=== PATIENT | female | born 1995 | race Caucasian/White ===

== ENCOUNTER 2021-03-14 11:12 | Outpatient (REF) | payer OTHER, SELFPAY ==
--- NOTE | ~2021-03-14 | XR_ITS ---
EXAMINATION: XR CHEST CLINICAL INFORMATION: Covid infection COMPARISON: None TECHNIQUE: 2 views of the chest were obtained. FINDINGS: The cardiac and mediastinal contours are normal. The lungs are clear. There is no pleural effusion or pneumothorax. There are mild degenerative changes of the thoracic spine. XR/XR chest 2V IMPRESSION: No evidence for acute disease in the chest.
[2021-03-14 13:55] LABS: MANUAL DIFF FLAG NO
[2021-03-14 14:15] LABS: Appearance Urine HAZY; Color Urine YELLOW; Glucose Urine UA NEG (NEG); Leukocyte Esterase Urine NEG (NEG); Nitrite Urine NEG (NEG); Specific Gravity - Urine 1.025 (1.005-1.025); Urine Blood NEG (NEG); Urine Ketones NEG (NEG); Urine Protein NEG (NEG-TRACE)
[2021-03-14 14:18] LABS: Basophils Absolute Auto 0.1 X10*3/uL (0.0-0.2); Basophils Percent Auto 0.8 % (0-2); Eosinophils Absolute Auto 0.2 X10*3/uL (0.0-0.4); Eosinophils Percent Auto 1.8 % (0-4); Hematocrit 43.3 % (37-47); Hemoglobin 14.8 g/dl (12.0-16.0); Imm Gran Abs Auto 0.05 X10*3/uL (0.00-0.03); Imm Gran Pct Auto 0.4 % (0.0-0.4); Lymphocytes Absolute Auto 2.7 X10*3/uL (1.2-4.9); Lymphocytes Percent Auto 24.1 % (20-40); Mean Corpuscular HGB Conc 34.2 g/dl (31.0-35.0); Mean Corpuscular Volume 99.5 fL (80-98); Mean Platelet Volume 11.6 fL (9.4-12.3); Monocytes Absolute Auto 0.6 X10*3/uL (0.1-1.2); Monocytes Percent Auto 5.3 % (2-11); Neutrophils Absolute Auto 7.5 X10*3/uL (2.0-8.3); Neutrophils Percent Auto 67.6 % (45-73); Platelet Count 402 X10*3/uL (160-400); Red Blood Count 4.35 X10*6/uL (4.20-5.50); Red Cell Distribution Width 13.2 % (11.0-16.0); White Blood Count 11.1 X10*3/uL (4.8-10.8)
[2021-03-14 14:51] LABS: Alanine Aminotransferase 87 U/L (0-31); Albumin Level 4.3 g/dL (3.5-5.0); Alkaline Phosphatase 97 U/L (39-117); Anion Gap 16 (12-20); Aspartate Amino Transferase 50 U/L (5-31); Bilirubin Total 0.7 mg/dL (0.0-1.0); Blood Urea Nitrogen 6 mg/dL (9-16); Calcium 9.3 mg/dL (8.4-10.2); Carbon Dioxide 21 mmol/L (22-29); Chloride 104 mmol/L (96-108); Cholesterol 182 mg/dL; Estimated Glomerular Filt Rate > 60; Glucose Fasting 98 mg/dL (60-99); HDL Cholesterol 55 mg/dL; LDL Cholesterol Calculated 92 mg/dl; Potassium 4.2 mmol/L (3.3-5.1); Sodium 137 mmol/L (135-145); Total Protein 7.3 g/dL (6.5-8.0); Triglycerides 178 mg/dL
[2021-03-14 15:12] LABS: Thyroid Stimulating Hormone 2.79 uIU/mL (0.32-4.0); Vitamin D 25-OH Total 19.2 ng/mL (>30)
[2021-03-14 15:17] LABS: Bacteria Urine TRACE /LPF; Mucus Urine 1+ /LPF; RBC Urine 0-2 /HPF (0); Squamous Epithelial Cell Urine 2+ /LPF; WBC Urine 0-2 /HPF (0-4)
== END 2021-03-14 11:13 | disposition home or self-care (01) ==
LOC: HO.HMGCLDS 11:12
PROVIDERS: PCP Internal Medicine; Visit Provider Internal Medicine
DX: L70.9 Acne, unspecified (principal); M08.00 Unspecified juvenile rheumatoid arthritis of unspecified site; K21.9 Gastro-esophageal reflux disease without esophagitis; U07.1 COVID-19; Z91.09 Other allergy status, other than to drugs and biological substances
CPT/HCPCS: 36415; 71046; 80053; 80061; 81001; 82306; 84443; 85025; 87086

== ENCOUNTER 2021-08-03 10:21 | Emergency (ER) | payer OTHER, SELFPAY ==
[2021-08-03 10:27] VITALS: BP 143/83; PULSE 82; RESP 18; TEMP 36.7; O2SAT 100; BMI 41.0
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
== END 2021-08-03 13:08 | disposition home or self-care (01) ==
LOC: HO.ED 12:23
PROVIDERS: Emergency Provider Emergency Medicine; PCP Internal Medicine
DX: G44.329 Chronic post-traumatic headache, not intractable (principal); F07.81 Postconcussional syndrome; Z87.820 Personal history of traumatic brain injury
CPT/HCPCS: 99283

== ENCOUNTER 2024-03-27 12:48 | Outpatient (AMB) | payer OTHER, SELFPAY ==
[2024-03-27 13:15] VITALS: BP 100/70; PULSE 71; TEMP 36.6; O2SAT 99; BMI 39.2
--- NOTE | 2024-03-27 13:15 | MHC.OFFWIV ---
Intake Vital Signs 03/27/24 13:15 Height 4 ft 11 in Weight 194 lb BMI 39.2 BP 100/70 Blood Pressure Location Lt brachial Position Sitting Pulse 71 Pulse Source Pulse Oximeter Temp 97.9 F Temp Source Oral Pulse Oximetry (%) 99 Oxygen Delivery Method Room Air Intake Visit Reasons: EP- Rt hip pain Intake Note: Pt is here today c/o Rt hip pain due to her dog running over her Allergies Penicillins Allergy (Mild, Verified 03/27/24 14:08) unsure SEASONAL ALLERGIES Allergy (Mild, Uncoded 03/27/24 13:57) RUNNY NOSE, SNEEZING,ITCHY EYES Medication List - Last Reconciled 03/27/24 by Lisette Skelton, ENROLLMENT ELIGIBILITY REPRESENTATIVE- albuterol sulfate 90 mcg/actuation inhalation cetirizine 10 mg PO DAILY PRN diclofenac sodium 75 mg PO DAILY montelukast 10 mg PO DAILY omeprazole magnesium (Prilosec OTC) 20 mg PO DAILY spironolactone 25 mg PO DAILY HPI HPI Comments History of Present Illness Details Here today with complaints of right hip and groin pain that started 2 weeks ago. Reports that she was standing with her right leg out turned and a people ran in to the medial aspect of her knee causing her hip to abduct. She did not fall. She has had pain in the groin area since then. The pain can radiate to the lateral aspect of her hip. It hurts to walk and bear weight. Has been doing ice, heat, NSAIDs and Tylenol with very minimal relief. Exam Awake alert oriented, no acute distress, accompanied by mom Right lower extremity neurovascularly intact, antalgic gait favoring the right side, pain with palpation over right groin, lateral right hip, painful range of motion in all directions active and passive Plan Advised to use crutches to help her ambulate. I do not want her to be nonweightbearing. Rather I want her to use the crutches to help support her gait. She reports that she has crutches at home and we will begin to use. Okay to continue diclofenac which she has a home. Use Tylenol as needed for breakthrough pain along with heat, ice. X-ray of the right hip and pelvis today, review by myself negative for acute findings. Final read pending. Referral placed to orthopedics for further evaluation treatment and management This note is constructed using voice recognition software. While every effort has been made to ensure accuracy in facility maintenance manager, still errors may have been included Sometimes, these errors may affect the content or meaning of the given sentence . Total time spent caring for the patient today was 30 minutes. This includes time spent before the visit reviewing the chart, time spent during the visit, and time spent after the visit on documentation [facility] Medical History Acne Arthritic gait Asthma Seasonal allergies TBI (traumatic brain injury) Physical Exam Vital Signs: Last Vital Signs Temp 97.9 F 03/27/24 13:15 Pulse 71 03/27/24 13:15 BP 100/70 03/27/24 13:15 Pulse Ox 99 03/27/24 13:15 Oxygen Delivery Method Room Air 03/27/24 13:15 BMI result Body Mass Index 39.2 Assessment & Plan Assessment & Plan (1) Right groin pain: Code(s): R10.31 - Right lower quadrant pain Plan: . (2) Injury of right hip: Code(s): S79.911A - Unspecified injury of right hip, initial encounter Qualifiers: Encounter type: initial encounter Qualified Code(s): S79.911A - Unspecified injury of right hip, initial encounter Plan: . Plan . Orders: Orders XR hip RT w PEL1V Today R10.31 - Right lower quadrant pain, S79.911A - Unspecified injury of right hip, initial encounter Referrals Orthopedics Referral R10.31 - Right lower quadrant pain, S79.911A - Unspecified injury of right hip, initial encounter Coding Level of Care Code Est Pt Level 4 (82878) Diagnoses Right groin pain R10.31 Injury of right hip, initial encounter S79.911A Encounter type: initial encounter
== END 2024-03-27 14:09 | disposition home or self-care (01) ==
PROVIDERS: PCP Internal Medicine; Visit Provider Nurse Practitioner Family
DX: R10.31 Right lower quadrant pain (principal); S79.911A Unspecified injury of right hip, initial encounter

== ENCOUNTER 2024-03-27 12:48 | Outpatient (REF) | payer OTHER, SELFPAY | END 2024-03-27 12:49 | disposition home or self-care (01) | LOC: HO.HMGCX 12:48 | PROVIDERS: PCP Internal Medicine; Visit Provider Nurse Practitioner Family | DX: S79.911A Unspecified injury of right hip, initial encounter (principal); W50.0XXA Accidental hit or strike by another person, initial encounter; R10.31 Right lower quadrant pain | CPT/HCPCS: 73502 ==

== ENCOUNTER 2024-04-19 10:00 | Outpatient (AMB) | payer OTHER, SELFPAY ==
[2024-04-19 10:01] VITALS: BMI 39.2
--- NOTE | 2024-04-19 10:01 | MHC.OFFVIS ---
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 Mar 09 she was standing with her leg out when a dog ran into the medial aspect of her leg causing her leg to rotate laterally. Patient reports that she though that her symptoms would resolve on their own, she was taking Tylenol and Ibuprofen as well as rest and ice. Currently she feels pain all the time, worse with walking and working. Denies numbness and tingling She is currently at work. 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 She was at work on Mar 09 and was standing with her leg out when a dog ran into the medial aspect of her leg causing her leg to rotate laterally. Patient reports that she though that her symptoms would resolve on their own, she was taking Tylenol and Ibuprofen as well as rest and ice. Currently she feels pain all the time, worse with walking and working. Denies numbness and tingling. She is currently working but with pain. She can not walk normally. She has to use crutches and feels frustrated that she is so disabled. [facility] Medical History Acne Arthritic gait Asthma Seasonal allergies TBI (traumatic brain injury) Social History (Updated 04/19/24 @ 10:09 by Qian Hoover CMA) Current occupational status: employed Current occupation: [employer] Physical Exam Vital Signs: BMI result Body Mass Index 39.2 Extrem Other: Antalgic gait Passive internal rotation is extremely painful with a positive impingement test. Negative straight leg raise. Positive Stinchfield. Results Reviewed Results Reviewed: I personally reviewed relevant radiographs. AP pelvis radiographs are unremarkable Assessment & Plan Assessment & Plan (1) Labral tear of right hip joint: Code(s): S73.191A - Other sprain of right hip, initial encounter Category: Medical Plan: This is a 28-year-old previously healthy young woman with internal derangement of the right hip possible labral pathology who was involved in a workplace injury and can not walk without pain. I recommend physical therapy and that she do not work. A note was written written for her to remain out of work until her next follow up with me in approximately 6 weeks. She is taking diclofenac 75 mg daily and has been for many years because of a history of rheumatoid arthritis. I recommend that she double that dose. I warned her of the caustic effects on her stomach and that if this irritates her stomach she should reduce her use. Orders: Orders PT Evaluation and Treatment Today S73.191A - Other sprain of right hip, initial encounter Medications: Changed From diclofenac sodium 75 mg PO DAILY To diclofenac sodium 75 mg PO BID 60 tabs 1RF Coding Level of Care Code New Pt Level 4 (87191) Diagnoses Labral tear of right hip joint S73.191A
== END 2024-04-19 10:26 | disposition home or self-care (01) ==
PROVIDERS: PCP Internal Medicine; Visit Provider Orthopaedic Surgery
DX: S73.191A Other sprain of right hip, initial encounter (principal)
CPT/HCPCS: 99204

== ENCOUNTER 2024-05-28 07:00 | Outpatient (RCR) | payer OTHER, SELFPAY ==
--- NOTE | 2024-05-07 07:00 | MHC.PT.EP ---
[facility] [place] [facility] [place] [facility] [place] [facility] [address] Rosendo Summers [address] [phone] F: [phone] F: [phone] F: [phone] F: [phone] Physical Therapy Plan of Care Date of Evaluation: 05/07/24 Date of Surgery: Diagnosis: This is a 28 yo female presenting to skilled PT with a script for labral tear of R hip joint. Assessment: This is a 28 yo female presenting to skilled PT with a script for labral tear of R hip joint. On 03/09/24 this patient was standing at work when a dog ran into the medial aspect of her leg causing increased pain right way (her leg abducted and ER, she fell into the fence). Patient is being followed by [facility] ortho and returns to them on 05/31/24. The last note from them states possible labral pathology: I recommend physical therapy and that she do not work. A note was written written for her to remain out of work until her next follow up with me in approximately 6 weeks. She is taking diclofenac 75 mg daily and has been for many years because of a history of rheumatoid arthritis. Pain is located at the R groin, lateral hip. Pain is constant but can be sharp at times. Denies numbness or tingling. Assessment reveals pain that ranges from up to a 8/10 at the worst. Patient demos decreased hip ROM, strength of B hips, TTP at QL, piriformis, ITB, lateral hip, SIJ, decreased gait pattern and associated balance, + SIJ test involvements and impaired posture with forward head and rounded shoulders. Based on functional limitations, impaired QOL and pain tolerance patient is a good candidate for skilled PT 2x/wk for 4wks. Frequency and Duration: The patient will be seen 2x/wk for 4wks Short Term Goals: (in 2 weeks) Patient will improve hip AROM by at least 10 degs without assist or pain Patient will demo good understanding and performance of quad set, glut set in multiple different planes without cues from PT Patient will be I in HEP Fdc Goals: (in 4 weeks) Patient will demo improved gait pattern with heel strike vs toe first without cues from PT Patient will improve LEFs by 10 points Patient will demo WFL AROM of hip, knee and ankle Patient will demo proper squat and lift techniques without increase in pain Patient will demo 5/5 glut and hip strength Treatment Plan: Modalities to reduce pain, spasms and effusion. Manual therapy to restore motion and function. Therapeutic exercise to improve strength and flexibility. Neuromuscular re-education for posture and balance. Therapeutic activities to return to functional activities of daily living. Electronically signed by: Beverly Hernandez PT Please sign and return to therapist. Thank you for your referral.
--- NOTE | 2024-05-28 08:01 | MHC.PT.PR ---
[facility] [place] [facility] [place] [facility] [place] Office [address] Rosendo Summers [address] [phone] F: [phone] F: [phone] F: [phone] F: [phone] Physical Therapy Progress Note Diagnosis: This is a 28 yo female presenting to skilled PT with a script for labral tear of R hip joint. Date of Surgery: Date of Evaluation: 05/07/24 Treatments to Date: 7 Cancellations to Date: 0 No Shows to Date: 0 Subjective: I have a little less pain today Pain Score and Location: 6 R hip Objective Measures: knee AROM: 0-121 knee MMT: flexion 5 and extension 5 hip AROM: hamstring to 65, 27 abduction, 10 add, 90 degs flexion, 15 ext, 25 IR and 35 ER hip MMT: flexion 4, abduction 4, ext 3, IR 3, ER 4- functional movements: SLS for 23 sec, squats onto toes and uses table to shift away from the hip, step to on the stairs and offweights through UE's using rails pain at the worst lately: 01/26, located at the groin, painful clicking and sharp pains LEFs: Assessment: 05/28: Today I performed a re-evaluation as noted above in the objective measurements. Overall, she has made little progress with improvements in pain/symptoms and at times she has more pain. She demos little improvement in objective measurements as well. She sees ortho on Friday, PT recommending patient to follow up with them for ? further testing. Patient has 1 more scheduled appointment, if ortho wants her to continue we will do so for 2x/wk for 4 wks if approved. PT Plan: Frequency and Duration: The patient will be seen 2x/wk for 4wks Treatment Plan: Therapeutic Exercise Dynamic Therapeutic Activities Neuromuscular Re-ed Manual Therapies Joint Mobilization Taping Gait Home Exercise Program Patient Education Hot or Cold Pack Reviewed/ Agreed with Student Documentation: Therapist: Thank you once again for your referral.
--- NOTE | 2024-06-25 10:27 | MHC.PT.DC ---
[facility] [place] Office [place] Office [place] Office [address] Rosendo Summers [address] [phone] F: [phone] F: [phone] F: [phone] F: [phone] Physical Therapy Discharge Report Diagnosis: This is a 28 yo female presenting to skilled PT with a script for labral tear of R hip joint. Date of Surgery: Date of Evaluation: 05/07/24 Date of Discharge: 06/25/24 Treatments to Date: 7 Cancellations to Date: 0 No Shows to Date: 0 Discharge Status: Recommend MD Follow-up Discharge Summary: 05/28: Today I performed a re-evaluation as noted above in the objective measurements of last progress note. Overall, she has made little progress with improvements in pain/symptoms and at times she has more pain. She demos little improvement in objective measurements as well. She sees ortho on Friday, PT recommending patient to follow up with them for ? further testing. Chart was closed after 30 days. Electronically signed by: Beverly Hernandez PT Please sign and return to therapist. Thank you for your referral.
== END 2024-06-25 10:28 | disposition home or self-care (01) ==
LOC: HO.PTCHIC 07:00
PROVIDERS: PCP Internal Medicine; Visit Provider Orthopaedic Surgery
DX: S73.191D Other sprain of right hip, subsequent encounter (principal)
CPT/HCPCS: 97110; 97140; 97161; 97162; 97164

== ENCOUNTER 2024-05-31 10:05 | Outpatient (AMB) | payer OTHER, SELFPAY ==
[2024-05-31 10:08] VITALS: BMI 39.2
--- NOTE | 2024-05-31 10:08 | MHC.OFFVIS ---
Vital Signs 05/31/24 10:08 Height 4 ft 11 in Weight 194 lb BMI 39.2 Intake Visit Reasons: OV - Right Labral Tear - 03/09/24 Intake Note: Jemma is a 28 year old female who presents today for a follow up of her Right Hip/Labral Tear. This was a work related injury from 03/09/2024 she was standing with her leg out when a dog ran into the medial aspect of her leg causing her leg to rotate laterally. A physical therapy order was placed & she was instructed to double her dose of Diclofenac that she was previously prescribed for RA. She remains out of work at this time. Patient reports that she continues to have pain, she feels that her symtpoms have remained unchanged. Allergies Penicillins Allergy (Mild, Verified 05/31/24 10:08) unsure bee venom protein (honey bee) Allergy (Verified 05/31/24 10:08) Anaphylaxis SEASONAL ALLERGIES Allergy (Mild, Uncoded 05/31/24 10:08) RUNNY NOSE, SNEEZING,ITCHY EYES HPI HPI OV - Right Labral Tear - 03/09/24: Details: Justina was injured while at work less than 3 months ago. She is still unable to ambulate. She feels slightly better after increasing her anti-inflammatory and engaging in physical therapy but still has groin pain that prevents her from walking without a limp and severe discomfort. [facility] Medical History Acne Arthritic gait Asthma Seasonal allergies TBI (traumatic brain injury) Social History Current occupational status: employed Current occupation: [employer] Physical Exam Vital Signs: BMI result Body Mass Index 39.2 Extrem Other: Antalgic gait Passive internal rotation is positive impingement test that is less painful than prior. Negative straight leg raise. Positive Stinchfield. Assessment & Plan Assessment & Plan (1) Labral tear of right hip joint: Code(s): S73.191A - Other sprain of right hip, initial encounter Category: Medical Plan: Work-related injury of her right hip. PT and NSAIDs have not sufficiently alleviated her discomfort and I recommend an MR arthrogram. Continue home exercise program continue some out of work. Follow up when MRI is complete. Orders: Orders MR hip RT w con Today S73.191A - Other sprain of right hip, initial encounter [place] arthrogram hip RT Today S73.191A - Other sprain of right hip, initial encounter Coding Level of Care Code Est Pt Level 3 (76824) Diagnoses Labral tear of right hip joint S73.191A
== END 2024-05-31 10:29 | disposition home or self-care (01) ==
PROVIDERS: PCP Internal Medicine; Visit Provider Orthopaedic Surgery
DX: S73.191A Other sprain of right hip, initial encounter (principal)
CPT/HCPCS: 99213

== ENCOUNTER → 2024-05-31 10:05 | Outpatient (BNVA) | payer OTHER, SELFPAY | PROVIDERS: PCP Internal Medicine; Visit Provider Orthopaedic Surgery | DX: S73.191D Other sprain of right hip, subsequent encounter (principal) | CPT/HCPCS: 99212 ==

== ENCOUNTER 2024-06-21 12:52 | Outpatient (REF) | payer OTHER, SELFPAY ==
--- NOTE | ~2024-06-21 | MR_ITS ---
CLINICAL HISTORY: S73.191A - Other sprain of right hip, initial encounter MR right hip with gadolinium Comparison: None Findings: Normal alignment without acute fracture. Unremarkable soft tissues. Right: Suggestion of anterior superior labral tear from 1 to 2 o'clock positions especially on the sagittal view. Unremarkable ligamentum teres. No significant cartilage thinning/loss. IMPRESSION: Right: Suggestion of anterior superior labral tear from 1 to 2 o'clock positions especially on the sagittal view. This document has been electronically signed by: Kenia Mckinney MD on 06/23/2024 12:08:41
--- NOTE | ~2024-06-21 | FL_ITS ---
FLUOROSCOPIC RIGHT HIP ARTHROGRAM INDICATIONS: Right hip pain. Intra-articular gadolinium injection is needed prior to MRI. PROCEDURE: Risks and benefits and possible complications were discussed with the patient and the consent form was signed. The patient was placed hip on the fluoroscopy table. The right hip was prepped and draped in normal sterile fashion. 1% buffered lidocaine was used for anesthesia. A 22-gauge spinal needle was used to access the hip joint. Intra-articular position of the needle within the hip joint was verified using 3 cc of Omnipaque 300. A total of 10 mL of gadolinium/saline (1:200) contrast mixture was then injected into the hip joint. The needle was then removed and a Band-Aid was applied to the injection site. The patient tolerated the procedure well and was sent for to MRI. There were no immediate complications. FL/FL arthrogram hip RT IMPRESSION: Successful fluoroscopic guided right hip intra-articular instillation of dilute contrast. Patient will undergo subsequent MRI. The procedure was performed by Srinath Myers PA-C, and directly supervised by Dr. Knight. Electronically signed by: Henri Knight MD 06/22/2024 12:56 PM [facility]
[2024-06-21] MEDS: Lidocaine HCl 1 % 20 ML VIAL 5 ML INFILTRATI (13:41)
[2024-06-21] MEDS: iohexoL 300 MG/ML 50 ML INFUS..BTL INTRAARTIC (13:42)
--- OUTSIDE RECORDS SUMMARY | 2024-06-21 14:12 | XMS_ITS | Encounter Summary ---
Author Organization [facility] Address [address] [place] [address] Phone Care Team Providers Care Seismic Interpreter Name Role Phone Lori Meneses NP Primary Care Provider [phone] Encounter Details Date Type Department Care Team (Late st Contact Info) Description 02/04/2013 Conversion Encounter [facility] [address] [place] [address] [place] [id number] Social History Tobacco Use Types Packs/Day Years Used Date Smoking Tobacco: Never Assessed Comments Unknown Sex and Gender Information Value Date Recorded Sex Assigned at Not on file Legal Sex Female 6:24 PM EDT Gender Identity Not on file Sexual Orientation Straight 08/07/2020 6: 24 PM EDT documented as of this encounter Plan of Treatment Not on file documented as of this encounter Visit Diagnoses Not on filedocumented in this encounter Care Teams Seismic Interpreter Relationship Specialty Start Date End Date Lori Meneses NP [address] [place] [address] [place] [id number] PCP - General Pediatrics 09/04/20 documented as of this encounter
--- OUTSIDE RECORDS SUMMARY | 2024-06-21 14:12 | XMS_ITS | Encounter Summary ---
Author Organization [facility] Address [address] [place] [address] Phone Care Team Providers Care Entry Rep Name Role Phone Lori Meneses NP Primary Care Provider [phone] Reason for Visit * Reason Comments Med Refill Encounter Details Date Type Department Care Team (Late st Contact Info) Description 11/07/2017 Refill [facility] [address] [place] [address] [place] [id number] Tiffanie Cote DO PCOS (polycystic ovarian syndrome) (Primary Dx) Social History Tobacco Use Types Packs/Day Years Used Date Smoking Tobacco: Never Smokeless Tobacco: Never Comments:Never Smoker Comments Unknown Sex and Gender Information Value Date Recorded Sex Assigned at Not on file Legal Sex Female 6:24 PM EDT Gender Identity Not on file Sexual Orientation Straight 08/07/2020 6: 24 PM EDT documented as of this encounter Miscellaneous Notes * Telephone Encounter - Miranda Nicole MA - 11/10/2017 7:48 AM EDT Last pe with ALP on 12/09/16 documented in this encounter Plan of Treatment Not on file documented as of this encounter Visit Diagnoses Diagnosis PCOS (polycystic ovarian syndrome)- Primary Polycystic ovaries documented in this encounter Care Teams Entry Rep Relationship Specialty Start Date End Date Lori Meneses NP [address] [place] [address] [place] [address] PCP - General Pediatrics 09/04/20 documented as of this encounter
--- OUTSIDE RECORDS SUMMARY | 2024-06-21 14:12 | XMS_ITS | Clinical Summary ---
Author Organization [facility] Address [address] [place] [address] Phone Care Team Providers Care Business Management Specialist Name Role Phone Lori Meneses ASHLYN Primary Care Provider [phone] Allergies Active Allergy Reactions Criticality Noted Date Comments Amoxicillin Bee Venom 09/18/2020 Environmental Penicillins 11/26/2017 Medications diclofenac 75 MG EC tablet 8 Active Omeprazole Magnesium (PRILOSEC OTC PO) Take by mouth. Active albuterol HFA 108 (90 Base) MCG/ACT inhalerIndication s:Cough Inhale 2 puffs every 4 (four) hours as needed for wheezing or shortness of breath. 1 Units 1 Active EPINEPHrine (EpiPen 2-Santana) 0.3 MG/0.3ML injection syringeIndication s:Allergic reaction, subsequent encounter Inject into muscle immediately for signs of anaphylaxis AND call 911. Repeat if symptoms worsen/recur or if uncertain medicine was given 4 Syringe 1 1 Active cetirizine 10 MG tabletIndications :Seasonal allergic rhinitis due to other allergic trigger Take 1 tablet (10 mg total) by mouth nightly. 30 tablet 3 1 Active spironolactone 25 MG tabletIndications :PCOS (polycystic ovarian syndrome) Take 2 tablets po daily 60 tablet 3 1 Active montelukast 10 MG tabletIndications :Non-seasonal allergic rhinitis due to other allergic trigger Take 1 tablet (10 mg total) by mouth every evening. 30 tablet 3 1 Active medroxyPROGESTERo ne 150 MG/ML injectionIndicati ons:Encounter for surveillance of injectable contraceptive Inject 1 mL (150 mg total) into the muscle once for 1 dose. 1 mL 1 Active Active Problems Patient Care Coordination No te Formatting of this note migh t be different from the original. Tcm to book asthma recheck appt no answer vm left. 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 Overview (11/26/2017): Juvenile rheumatoid arthritis (JRA) (714.30) Onset: 12/10/2016 Added by: Tiffanie Cote Extrinsic asthma 03/25/2014 Overview (11/26/2017): Asthma (493.00) Onset: 03/25/2014 Added by: Adrian Hidalgo Resolved Problems Problem Noted Date Diagnosed Date Resolved Date Refused influenza vaccine 08/07/2020 Dizziness and giddiness 09/25/2017 06/0 07/2018 Overview (11/26/2017): Dizziness (780.4) Onset: 09/25/2017 Added by: Ying Zambrano Postconcussion syndrome 08/17/2017 03/2 12/2020 Overview (11/26/2017): Post concussion syndrome (310.2) Onset: 08/17/2017 Added by: Tiffanie Cote Intestinal infections due to other organisms 7 10/19/2018 Overview (11/26/2017): Viral gastroenteritis (008.8) Onset: 12/02/2016 Added by: Bazukina, Miranda Contraceptive surveillance 05/31/2016 0 11/27/2018 Overview (11/26/2017): Follow-up visit for Depo Provera injection (V25.49) Onset: 05/31/2016 Added by: Freda Martinez Pain in soft tissues of limb 05/09/2015 10/19/2018 Overview (11/26/2017): Leg pain (729.5) Onset: 05/09/2015 Added by: Montse Alejandre Other atopic dermatitis and related conditions 04/10/2015 09/18/2020 Overview (11/26/2017): Atopic eczema (691.8) Onset: 04/10/2015 Added by: Tiffanie Cote Other malaise and fatigue 08/04/2014 Overview (11/26/2017): Fatigue (780.79) Onset: 08/04/2014 Added by: Ying Zambrano Slow transit constipation 06/08/2014 Overview (11/26/2017): Constipation (564.01) Onset: 06/08/2014 Added by: Tiffanie Cote Immunizations Name Administration Dates Next Due DTP 06/22/1998 DTaP 01/29/2002, 9,05/19/1997,03/19,01/17/1997 DTaP 5 01/29/2002, 9,05/19/1997,03/19,01/17/1997 HPV, Quadrivalent 05/14/2013,12/09/2012,10/08/19 13 Hep A, Adult 10/14/2018 Hep B, ped/adol 03/14/1998, 8,08/17/1997,12/17 Hib (HbOC) 02/16/1998, 8,03/19/1997,01/17 Hib (PRP-T) 03/14/1998, 8,05/19/1997,03/19,01/17/1997 IPV 01/29/2002, 9,03/19/1997,01/17 Influenza, injectable, quadr ivalent, preservative free 04/09/2014,04/16/2013 Influenza, injectable, trivalent 03/26/2012,02/17 MMR 01/29/2001,03/14/1998,02/16/1998 Meningococcal Conj (Menactra) MCV4P 11/24/2013,0 01/31/2009 OPV 06/22/1998 Tdap 11/26/2018,01/31/2009 Typhoid, ViCPs 10/14/2018 Varicella 11/17/2007,12/14/1997,11/16/1997 Yellow Fever (YF-VAX) 10/14/2018 Family History Medical History Relation Name Comments Hemochromatosis Father Keven Asthma Mother Angela Diabetes Paternal Grandfather Relation Name Status Comments Brother Keven Alive Father Keven Alive Mother Angela Alive Paternal Grandfather Sister Celestina Alive Social History Tobacco Use Types Packs/Day Years Used Date Smoking Tobacco: Never Smokeless Tobacco: Never Comments:Never Smoker Alcohol Use Standard Drinks/Week Comments Yes 0 (1 standard drink = 0.6 oz pur e alcohol) social Hunger/Food Answer Date Recorded In the last 12 months, did y ou or your family ever eat less than you felt you should because there wasn't enough money for food? No 08/07/2020 Stable Housing Answer Date Recorded Are you worried that in the next 2 months you may not have stable housing? No 08/07/2020 Transportation Concerns Answer Date Rec orded In the last 12 months, have you or your family ever had to go without healthcare because you didn't have a way to get there? No 08/07/2020 Hazards in Home Answer Date Recorded Think about the place you li ve. Do you have problems with any of the following? Pests (mice or roaches), mold, no/not working smoke detectors, water leaks, no window guards. No 2020 Financing Utilities Answer Date Recorde d In the last 12 months, has t he electric, gas, oil, or water company threatened to shut off your services in your home? No 08/07/2020 Safety at Home Answer Date Recorded Are you or your family worried about feeling saf e in your home? No 08/07/2020 Outside Support Answer Date Recorded Do you feel that you need mo re support from other people or programs to help you care for yourself or your family? No 08/07/2020 Understanding Health Concerns Answer Da te Recorded Do you need help understandi ng your or your child's healthcare needs (diagnosis, medications, plan, etc.)? No 08/07/2020 Financing Health Concerns Answer Date R ecorded In the last 12 months, was t here a time when your child needed to see a doctor or get medications or supplies but could not because of cost? No 08/07/2020 Missing School or Work Answer Date Uri rded Did you or your child miss s chool or work because of a health problem that could have been avoided? No 08/07/2020 Comments No Sex and Gender Information Value Date Recorded Sex Assigned at Not on file Legal Sex Female 6:24 PM EDT Gender Identity Not on file Sexual Orientation Straight 08/07/2020 6: 24 PM EDT Last Filed Vital Signs Vital Sign Reading Time Taken Comments Blood Pressure 108/60 09/18/2020 2:28 PM EDT Pulse 117 09/18/2020 2:28 PM EDT Temperature 35.7 ??C (96.3 ??F) 11/07/2020 3:00 PM ED T Respiratory Rate - - Oxygen Saturation 99% 05/25/2020 2:10 PM EST Inhaled Oxygen Concentration - - Weight 94.3 kg (207 lb 12.8 oz) 09/18/2020 2:28 PM EDT Height 151 cm (4' 11.45 ) 09/18/2020 2:28 PM EDT Body Mass Index 41.34 09/18/2020 2:28 PM EDT Plan of Treatment Health Maintenance Due Date Last Done Comments Consider Men B Vaccine (1 of 2 - Bexsero 2-dose series) 2012 Influenza Vaccines (#1) 2023 04/09/20 14, 04/16/2013, 03/26/2012, Additional history exists COVID-19 Vaccine ( - season) 2024 DTaP,Tdap,and Td Vaccines (8 - Td or Tdap) 11/26/2028 11/26/2018, 01/31/2009, 01/29/2002, Additional history exists HIB Vaccines Completed 03/14/1998, 05/1997, 02/16/1998, Additional history exists Hepatitis B Vaccines Completed 03/14/1998, 02/16/1998, 08/17/1997, Additional history exists MMR Vaccines Completed 01/29/2001, 02/17, 02/16/1998 IPV Vaccines Completed 01/29/2002, 08/1998, 06/19/1998, Additional history exists Varicella Vaccines Completed 11/17/2007, 0 12/14/1997, 11/16/1997 HPV Vaccines Completed 05/14/2013, 11/17, 10/07/2012 Meningococcal Vaccine Completed 11/24/2013, 009 Hepatitis A Vaccines Aged Out 10/14/2018 No long er eligible based on patient's age to complete this topic Men B Vaccine Aged Out No longer elig ible based on patient's age to complete this topic Pneumococcal Vaccine Aged Out No long er eligible based on patient's age to complete this topic Procedures * Due to [place] [employer] law, this organization might not be sharing sensitive test results. Procedure Name Priority Date/Time Associated Diagnosis Comments CHLAMYDIA GC AMP PROBE Routine 08/07/2020 6:11 PM EDT Well adult exam from Last 3 Months or Most Recently Relevant to Health Maintenance Results * Due to [place] [employer] law, this organization might not be sharing sensitive test results. * CHLAMYDIA GC AMP PROBE (08/07/2020 6:11 PM EDT) Chlamydia Trachomatis, Amplified NEGATIVE (NEG) [facility] Comment: No Chlamydia Trachomatis RNA detected in this patient's sample ? (REFERENCE RANGE/NORMAL VALUE: NOT DETECTED) ? Note: This test uses gate services supervisor- mediated amplification method to detect rRNA from C. Trachomatis N.GONORRHOEAE AMP PROBE NEGATIVE (NEG) [facility] Comment: No Neisseria Gonorrhoeae RNA detected in this patient's sample ? (REFERENCE RANGE/NORMAL VALUE: NOT DETECTED) ? NOTE: This test uses gate services supervisor-mediated amplification method to detect rRNA from N.Gonorrhoeae. A negative result does not preclude infection. In the case of a negative urine result, testing of an endocervical(female) or urethral (male) specimen is recommended if there is high clinical suspicion of infection. Due to very high sensitivity of Nucleic Acid Amplification Test, false positive results may occur. Therefore, specimen handling is extremely important. In patients in whom the disease is unlikely, additional sample for testing should be considered after an initial positive result. The performance characteristics of this test have not been evaluated in children. The Aptima Combo2 assay is not intended for the evaluation of suspected sexual abuse or for other medico-legal indications. The ordering provider should assess if the patient had consensual sex without risk of sexual abuse. Consult the [facility] if needed. Contact phone number . Therapeutic failure or success cannot be determined with the Aptima Combo2 assay since nucleic acid may persist following appropriate antimicrobial therapy. The Centers for Disease Control and Prevention (CDC) recommends confirmatory retesting using culture or a different nucleic acid amplification test when positive results occur, if indicated. CHLAM/GC AMP PROBE SPEC TYPE CERVIX [facility] Comment: Testing performed or reported by [facility], a Service of [facility], [facility] [place] [address] Pascual Allan MD, Research Pharmacist Swab (Cervix) 08/07/2020 6:1 1 PM EDT 08/08/2020 1:20 AM EDT Tiffanie Cote DO LAB MICROBIOLOGY - GENERAL ORDE JULIANNE Final Result [facility] from Last 3 Months or Most Recently Relevant to Health Maintenance Insurance [facility] Care Teams Business Management Specialist Relationship Specialty Start Date End Date Lori Meneses NP [address] [facility] [place] [address] PCP - General Pediatrics 09/04/20
--- OUTSIDE RECORDS SUMMARY | 2024-06-21 14:12 | XMS_ITS | Encounter Summary ---
Author Organization [facility] Address [address] [place] [address] Phone Care Team Providers Care Buggy Ladle Tender Name Role Phone Lori Meneses ASHLYN Primary Care Provider [phone] Reason for Visit * Reason Comments Med Refill Encounter Details Date Type Department Care Team (Late st Contact Info) Description 01/12/2020 Refill [facility] [address] [facility] [place] [address] Tiffanie Cote DO PCOS (polycystic ovarian syndrome) Social History Tobacco Use Types Packs/Day Years Used Date Smoking Tobacco: Never Smokeless Tobacco: Never Comments:Never Smoker Alcohol Use Standard Drinks/Week Comments Yes 0 (1 standard drink = 0.6 oz pur e alcohol) social Comments No Sex and Gender Information Value Date Recorded Sex Assigned at Not on file Legal Sex Female 6:24 PM EDT Gender Identity Not on file Sexual Orientation Straight 08/07/2020 6: 24 PM EDT documented as of this encounter Miscellaneous Notes * Telephone Encounter - Krystal Norton MA - 01/13/2020 9:46 AM EDT Pt overdue for pe. Last pe 11/2018. L/M 10/30, 11/30 and today (01/12) to schedule a WCC. Pt has not called back to schedule this visit. I left her a voicemail today letting her know once we have a WCC scheduled I can send the refill request to the Provider. MQ documented in this encounter Plan of Treatment Not on file documented as of this encounter Visit Diagnoses Diagnosis PCOS (polycystic ovarian syndrome) Polycystic ovaries documented in this encounter Care Teams Buggy Ladle Tender Relationship Specialty Start Date End Date Lori Meneses NP [address] [facility] [place] [address] PCP - General Pediatrics 09/04/20 documented as of this encounter
== END 2024-06-21 12:53 | disposition home or self-care (01) ==
LOC: HO.XRAY 12:52
PROVIDERS: PCP Internal Medicine; Visit Provider Orthopaedic Surgery
DX: S73.191A Other sprain of right hip, initial encounter (principal)
CPT/HCPCS: 20610; 27093; 73525; 73722; 77002; J2003; Q9967

== ENCOUNTER → 2024-06-21 13:02 | Outpatient (BNV) | payer OTHER, SELFPAY | PROVIDERS: PCP Internal Medicine; Visit Provider Physician Assistant Surgical | DX: S73.191A Other sprain of right hip, initial encounter (principal) | CPT/HCPCS: 73722 ==

== ENCOUNTER 2024-06-30 09:05 | Outpatient (AMB) | payer OTHER, SELFPAY ==
--- NOTE | 2024-06-30 09:15 | MHC.PC.OV ---
Vital Signs 06/30/24 09:21 Height 4 ft 11 in Weight 205 lb BMI 41.4 BP 132/74 Blood Pressure Location Rt brachial Pulse 70 Pulse Source Pulse Oximeter Temp 97.2 F Pulse Oximetry (%) 99 Intake Visit Reasons: physical Intake Note: no other issues Allergies latex Allergy (Mild, Verified 06/30/24 09:44) Itching Penicillins Allergy (Mild, Verified 06/30/24 09:44) unsure bee venom protein (honey bee) Allergy (Verified 06/30/24 09:44) Anaphylaxis SEASONAL ALLERGIES Allergy (Mild, Uncoded 06/30/24 09:44) RUNNY NOSE, SNEEZING,ITCHY EYES Medication List - Last Reconciled 06/30/24 by Paula Simmons PA-C albuterol sulfate 90 mcg/actuation inhalation cetirizine 10 mg PO DAILY PRN 90 days diclofenac sodium 75 mg PO BID epinephrine IM montelukast 10 mg PO DAILY 90 days omeprazole magnesium (Prilosec OTC) 20 mg PO DAILY spironolactone 25 mg PO DAILY 90 days [facility] Medical History (Updated 06/30/24 @ 17:17 by Paula Simmons PA-C) Subclinical hypothyroidism Annual physical exam Morbid obesity with BMI of 40.0-44.9, adult History of COVID-19 Environmental allergies GERD (gastroesophageal reflux disease) Juvenile rheumatoid arthritis Acne Arthritic gait Asthma Seasonal allergies TBI (traumatic brain injury) Surgical History History of ventral hernia repair Social History Current occupational status: employed Current occupation: [employer] Physical exam (Primary Care) Vital Signs: Last Vital Signs Temp 97.2 F 06/30/24 09:21 Pulse 70 06/30/24 09:21 BP 132/74 06/30/24 09:21 Pulse Ox 99 06/30/24 09:21 Care Plan Goal for BP management: <130/80 BMI result Body Mass Index 41.4 BMI Assessment/Plan discussion: High (And will be referred to medical information specialist and to weight management) BMI High, discussed plan: lifestyle, weight reduction, dietary, physical activity and alcohol moderation Coding Level of Care Code New Pt Prev Care 18-39yr([id number] Diagnoses Morbid obesity with BMI of 40.0-44.9, adult E66.01; Z68.41 Environmental allergies Z91.09 GERD (gastroesophageal reflux disease) K21.9 Juvenile rheumatoid arthritis M08.00 Acne L70.9 Labral tear of right hip joint S73.191A Annual physical exam Z00.00 Assessment & Plan Assessment & Plan (1) Morbid obesity with BMI of 40.0-44.9, adult: Code(s): E66.01 - Morbid (severe) obesity due to excess calories; Z68.41 - Body mass index [BMI] 40.0-44.9, adult Category: Medical Plan: Will refer patient to medical information specialist and medical weight management. Condition is chronic and stable continue to monitor. (2) Environmental allergies: Comment: Pollen, dust, animal dander Code(s): Z91.09 - Other allergy status, other than to drugs and biological substances Category: Medical Plan: Patient currently on Monetlukast and cetirizine and has the epi pen. Condition is chronic and stable continue to monitor. (3) GERD (gastroesophageal reflux disease): Code(s): K21.9 - Gastro-esophageal reflux disease without esophagitis Category: Medical Plan: Patient currently on omeprazole. Condition is chronic and stable continue to monitor (4) Juvenile rheumatoid arthritis: Code(s): M08.00 - Unspecified juvenile rheumatoid arthritis of unspecified site Category: Medical Plan: Patient currently on Diclofenac 75 mg b.i.d.. Condition is chronic and stable continue to monitor. (5) Acne: Code(s): L70.9 - Acne, unspecified Category: Medical Plan: Patient currently on spironolactone. Condition is chronic and stable continue to monitor. (6) Labral tear of right hip joint: Code(s): S73.191A - Other sprain of right hip, initial encounter Category: Medical Plan: Patient being followed by Orthopedics Dr. Carr had MRI on 06/21/2024 which revealed suggestion of anterior superior labral tear from 1-2 o'clock position especially in the saddle view. Patient currently on Diclofenac 75 mg b.i.d.. Patient to follow-up with orthopedic. This is a work-related injury and she has been out of work for this. Plans to go back to work on light duty to sit down at work. Condition is chronic and stable continue to monitor. (7) Annual physical exam: Code(s): . - Encounter for general adult medical examination without abnormal findings Category: Medical Plan: Normal physical exam. Plan Plan - Maintain asthma management with albuterol and montelukast. - Continue current management of depression with sertraline. - Follow up with marketing services specialist regarding hip labral tear; awaiting final recommendations from the MRI results. - Address diabetes management; await lab results for A1c and provide dietary guidance. - Consider review or adjustment of diclofenac dosage based on pain control and follow-up results. - Encourage bloodwork including CBC, CMP, liver enzymes, A1c, and vitamin levels. - Discuss options for potential weight management programs post-injury recovery. Orders: Orders Comprehensive [place]. Panel Fast 06/30/24 Z. - Encounter for general adult medical examination without abnormal findings Lipid Panel 06/30/24. - Encounter for general adult medical examination without abnormal findings Vitamin B12 and Folate 06/30/24. - Encounter for general adult medical examination without abnormal findings TSH reflex Free T4 06/30/24. - Encounter for general adult medical examination without abnormal findings Vitamin D 25-OH Total 06/30/24. - Encounter for general adult medical examination without abnormal findings C Reactive Protein 06/30/24. - Encounter for general adult medical examination without abnormal findings Hemoglobin A1c 06/30/24 Z.00 - Encounter for general adult medical examination without abnormal findings Complete Blood Count Auto Diff 06/30/2400. - Encounter for general adult medical examination without abnormal findings Magnesium 06/30/24. - Encounter for general adult medical examination without abnormal findings Liver Panel 06/30/24 Z00.00 - Encounter for general adult medical examination without abnormal findings Referrals Piano Mechanic Nutrition Referral E66.01 - Morbid (severe) obesity due to excess calories, Z68.41 - Body mass index [BMI] 40.0-44.9, adult Medical Weight Management Referral E66.01 - Morbid (severe) obesity due to excess calories, Z68.41 - Body mass index [BMI] 40.0-44.9, adult Patient Instructions: Patient Instructions - Complete fasting blood tests, including CBC, CMP, A1c, and vitamin levels. - Continue current medications as prescribed. - Follow recommendations by the marketing services specialist regarding hip injury management. - Consider consulting a medical information specialist for dietary advice and weight management. - Return for annual physical in one year or sooner if medical concerns arise. - Reflect on potential gynecological care when ready, options for care available. Scribe Plan - Not visible on output: History of Present Illness The patient is a 28-year-old female presenting for an annual physical examination. She has a history of asthma, managed with an albuterol inhaler and montelukast, and allergies, treated with cetirizine. The patient mentions the use of diclofenac for a potential hip labral tear, following a workplace injury where a large dog impacted her leg. This injury occurred at the end of February, leading to persistent pain despite physical therapy, and culminating in an MRI showing a suggestion of an anterior superior labral tear. The patient has been out of work and on workers' compensation, looking to return under modified duties. Her medication regimen includes omeprazole for gastroesophageal reflux disease, and spironolactone for her acne. She carries an Epipen for allergic reactions. The patient has a noted history of trauma associated with gynecological examinations, contributing to an avoidance of OG/RATE REVIEWER visits. She denies significant family medical history, such as breast or colon cancer, and her last bloodwork was in 2020, which was largely unremarkable. Social History - Employment: Out on workers? compensation due to hip injury. - Exercise: Unable to exercise due to hip injury. - Functional Status: Limited due to hip labral tear. - Nutrition: Attempts to eat healthily but struggles due to lack of exercise. - Current Weight Management: Frustrated with weight gain due to limited physical activity from hip injury. Review of Systems - Musculoskeletal: Reports hip pain and failed physical therapy. - Gastrointestinal: Denies change in bowel movements, heartburn implied but not explicitly discussed. - Neurological: Denies new onset symptoms; not discussed in detail otherwise. - Psychiatric: Denies current issues with anxiety or depression beyond usual management. - Constitutional: Denies significant weight changes aside from weight gain due to inactivity. Physical Exam Appearance: Alert. Oriented X3. No acute distress. Head: Normal external exam. Normocephalic. Atraumatic. Eyes: Pupils are equal, round, and reactive to light. Extraocular movements intact. Conjunctiva and sclera normal. Eyelids normal. Ears: External auditory canal normal. Tympanic membranes normal. Throat: Pharynx normal. Uvula midline. Moist mucous membranes. Neck: Normal inspection. Neck supple. Full range of motion. No adenopathy. Thyroid Normal. No meningeal signs. No neck mass noted. Cardiovascular: Normal heart rate and rhythm. Heart sound normal. No murmurs noted. Pulses normal throughout. Respiratory: No respiratory distress. Painless inspiration. Breath sounds normal. No wheezes/rales/rhonchi noted. No accessory muscle usage noted or decreased air movement noted. Abdomen: Soft and nontender. No distention noted. No organomegaly noted. Back: No costovertebral angle tenderness. Full range of motion noted. Skin: Skin warm and dry. Normal skin color. Normal skin turgor. No rashes/lesions/lacerations noted. Extremities: No lower extremity edema. No calf tenderness is noted. Patient with tenderness to right hip with range of motion. Otherwise all other extremities exhibit normal range of motion nontender. Neuro: Oriented X 3. No motor deficit. No sensory deficit. Reflexes normal. Patient walking with a limp due to right hip pain/labial tear. Results - MRI: Suggestion of an anterior superior labral tear of the hip from 1:00 to 2:00 o'clock position. Plan - Maintain asthma management with albuterol and montelukast. - Continue current management of cetirizine for allergies - Follow up with marketing services specialist regarding hip labral tear; awaiting final recommendations from the MRI results. - Address diabetes management; await lab results for A1c and provide dietary guidance. - Consider review or adjustment of diclofenac dosage based on pain control and follow-up results. - Encourage bloodwork including CBC, CMP, liver enzymes, A1c, and vitamin levels. - Discuss options for potential weight management programs post-injury recovery. Patient was informed and verbally consented to the use of an ambient scribe for clinic note documentation during this visit. Discussion Notes I discussed with the patient the current status of the suggested labral tear as revealed by MRI, the potential plans for management, and the implications for her return to work. We reviewed her asthma and depression management regimen and ensured understanding of her current medications and their uses. I emphasized the importance of completing the bloodwork to evaluate her diabetes and other routine checks. We talked about the options available for weight management and her interest in potentially consulting with a medical information specialist. I also acknowledged her past trauma with gynecological visits and offered supportive resources when she feels ready.
[2024-06-30 09:21] VITALS: BP 132/74; PULSE 70; TEMP 36.2; O2SAT 99; BMI 41.4
--- OUTSIDE RECORDS SUMMARY | 2024-06-30 10:02 | XMS_ITS ---
Author Organization James Jj DO, FACP Address [address] [place], [place] [id number] Care Team Providers Care Career Representative Name Role Phone Jamse Jj Primary Care Provider [phone] REASON FOR VISIT physical Encounters Encounter Location Date Provider Diagnosis James Jj DO, FACP [address] [place] [id number] 06/30/2024 James Jj PLAN OF TREATMENT No Information
--- OUTSIDE RECORDS SUMMARY | 2024-06-30 10:02 | XMS_ITS | Encounter Summary ---
Author Organization [facility] Address [address] [place] [address] Phone Care Team Providers Care Warp Dyeing Vat Tender Name Role Phone Lori Meneses ASHYLN Primary Care Provider [phone] Reason for Visit * Reason Comments Med Refill Encounter Details Date Type Department Care Team (Late st Contact Info) Description 01/12/2020 Refill [facility] [address] [facility] [place], [place] [address] Tiffanie Cote DO PCOS (polycystic ovarian syndrome) [...] ovaries documented in this encounter Care Teams Warp Dyeing Vat Tender Relationship Specialty Start Date End Date Lori Meneses NP [address] [facility] [place] [address] PCP - General Pediatrics 09/04/20 documented as of this encounter
--- OUTSIDE RECORDS SUMMARY | 2024-06-30 10:02 | XMS_ITS | Patient Health Record ---
Author Organization James Jj DO FACP Address [address] [place] [phone] Care Team Providers Care Transmission Rebuilder Name Role Phone James Jj Primary Care Provider ALLERGIES Allergen (clinical drug ingredient) Drug/Non Drug Allergy documented on EMR Reaction Allergy Type Onset Date Status Penicillin rash Drug Allergy Active Bee Sting rash, throat closure Allergy Active amoxicillin Amoxicillin rash Drug Allergy Act nga REASON FOR REFERRAL Reason CEE Diagnosis 1 Annual visit for [facility] adult medical examination without abnormal findings (Z00.00) Referral Organization James Baltazar FACP Referring Provider First Name James Referring Provider Last Name Анна Referring Provider Speciality Internal M edicine Referred Provider Aldo Nuñez Referred Provider Specialty Director Of Casino General Notes Kristy Bean 4 04:10:06 PM EST > Referral and notes faxed prior to scheduling. Referral Priority Routine Referral Appointment Date 09/15/2023 Reason Anaphylactic reactio n Diagnosis 1 Anaphylactic shock, unspecified, sequela (T78.2XXS) Referral Organization James Baltazar FACP Referring Provider First Name James Referring Provider Last Name Анна Referring Provider Speciality Internal M edicine Referred Provider Adán Avilez Referred Provider Specialty Allergy/Immu nology General Notes ADDITIONAL R ECORDS WILL FOLLOW BY SEPARATE FAX, Angelica Potts 10/22/2023 02:15:23 PM EDT > referral faxed., Angelica Potts 10/22/2023 03:57:21 PM EDT > referral manually faxed. Referral Priority Routine MEDICATIONS Medication SIG (Take, Route, Frequency, Duration) Notes Start Date End Date Status EpiPen 2-Santana 0.3 MG/0.3ML as directed In jection Once 11/26/2022 Active predniSONE 20 MG 1 tablet Orally Twic e a day for 6 days 10/22/2023 Active Albuterol Sulfate HFA 108 (90 Base) MCG/ACT 1 puff as needed Inhalation every 4 hrs for 30 days 10/22/2023 Active Montelukast Sodium 10 MG 1 tablet Orally Once a day for 90 days Active Diclofenac Sodium 75 MG 1 tablet as need ed Orally Once a day for 90 days Active Spironolactone 25 MG 1 tablet Orally Onc e a day for 90 days Active Cetirizine HCl 10 MG 1 tablet Orally Onc e a day for 90 days Active Omeprazole 20 MG 1 capsule 30 minutes before morning meal Orally Once a day Active SOCIAL HISTORY Tobacco Use: Social History Observation Description Date Details (start date - stop date) Never Smoker NA - NA Sex Assigned At : Social History Observation Description Sex Assigned At Unknown Tobacco Use/Smoking Question Answer Notes Patient is a nonsmoker Additional Findings: Tobacco Non-User Cu rrent non-smoker, currently using no form of tobacco Alcohol Screen Question Answer Notes Did you have a drink contain ing alcohol in the past year? Yes How often did you have a dri nk containing alcohol in the past year? Monthly or less (1 point) How many drinks did you have on a typical day when you were drinking in the past year? 1 or 2 drinks (0 point) How often did you have 6 or more drinks on one occasion in the past year? Never (0 point) Points 1 Interpretation Negative PROBLEMS Problem Type ICD Code Onset Dates Problem Status W/U Status Risk SNOMED Code Notes Problem Environmental allergies (Z91.09) Active confirmed 723929679 Problem JRA (juvenile rheumatoid arthritis) (M08.00) Active confirmed 111307513 Problem Gastroesophageal reflux disease without esophagitis (K21.9) Active confirmed 077012100 Problem Acne, unspecified acne type (L70.9) Active confirmed 95595985 Problem COVID-19 (U07.1) Active confirmed 11133 9006 Problem Morbid obesity (E66.01) Active confirmed 883339651 Problem Vitamin D deficiency (E55.9) Active confirmed 39918544 Problem Allergy status to unspecified drugs, medicaments and biological substances (Z88.9) Active confirmed Drug pippa rgy (135419765) VITAL SIGNS Blood pressure diastolic 72 mm Hg 07/02/2023 Height 59.25 in 07/02/2023 Blood pressure systolic 110 mm Hg 07/02/2023 Weight 188 lbs 07/02/2023 BMI 37.65 kg/m2 07/02/2023 Encounters Encounter Location Date Provider Diagnosis James Jj DO, [facility] [address] [place], [place] [id number] 07/02/2023 James Jj Encounter for genera l adult medical examination without abnormal findings Z00.00 ; JRA (juvenile rheumatoid arthritis) M08.00 ; Gastroesophageal reflux disease without esophagitis K21.9 ; Acne, unspecified acne type L70.9 ; Environmental allergies Z91.09 and Vitamin D deficiency E55.9 Jmaes Jj DO, [facility] [address], [place] [id number] 06/30/2024 James Jj DO, [facility] [address], [place] [id number] 07/02/2023 James Jj DO, [facility] [address], [place] [id number] 07/02/2023 James Jj DO, [facility] [address], [place] [id number] 08/12/2023 James Jj DO, [facility] [address], [place] [id number] 10/22/2023 James Jj DO, [facility] [address], [place] [id number] 10/22/2023 aJmes Jj DO, [facility] [address], [place] [id number] 10/28/2023 James Jj ASSESSMENTS Encounter Date Diagnosis Assessment Notes Treatment Notes Treatment Clinical Notes 07/02/2023 Encounter for genera l adult medical examination without abnormal findings (ICD-10 - Z00.00) Jemma declines treatment for anxiety/depress ion at this time. She also declines WATERPROOFER HELPER examination/ref erral at this time. Ask the NN to contact her regarding [facility] and community resources Refer to Optometry for CEE 07/02/2023 JRA (juvenile rheumatoid arthritis) (ICD-10 - M08.00) 07/02/2023 Gastroesophageal ref lux disease without esophagitis (ICD-10 - K21.9) 07/02/2023 Acne, unspecified ac ne type (ICD-10 - L70.9) 07/02/2023 Environmental allerg ies (ICD-10 - Z91.09) 07/02/2023 Vitamin D deficiency (ICD-10 - E55.9) PLAN OF TREATMENT Pending Test Test Name Order Date CBC w DIFF 07/02/2023 CBC w DIFF 06/15/2021 LIPOPROTEIN FRACTIONATION (LIPID PANEL) 07/02/2023 PROFILE, FASTING 07/02/2023 PROFILE, RANDOM 06/15/2021 TSH (THYROID STIMULATING HORMONE) 2023 VITAMIN D 25-OH TOTAL 07/02/2023 VITAMIN D 25-OH TOTAL 06/15/2021 Insurance Providers Payer Name Payer Address Payer Phone Subscriber Number Group Number Insured Name Patient Relationship to Insured Coverage Start Date Coverage End Date [facility] [address] [facility] [place] [phone] [id number] Jemma Brown Self - patient is the insured MEDICAL (GENERAL) HISTORY Medical History History ICD Code acne juvenile rheumatoid arthritis gastroesophageal reflux disease (GERD) environmental allergies-pollen, dust, an imal dander COVID Surgical History Surgery Date(Month/Year) ventral hernia repair
--- OUTSIDE RECORDS SUMMARY | 2024-06-30 10:02 | XMS_ITS | Encounter Summary ---
Author Organization [facility] Address [address] [place] [address] Phone Care Team Providers Care Fleet Administrative Assistant Name Role Phone Lori Meneses NP Primary Care Provider [phone] Reason for Visit * Reason Comments Med Refill Encounter Details Date Type Department Care Team (Late st Contact Info) Description 11/07/2017 Refill [facility] [address] [place] [address] [place] [address] Tiffanie Cote DO PCOS (polycystic ovarian syndrome) [...] ovaries documented in this encounter Care Teams Fleet Administrative Assistant Relationship Specialty Start Date End Date Lori Meneses NP [address] [place] [address] [place] [address] PCP - General Pediatrics 09/04/20 documented as of this encounter
--- OUTSIDE RECORDS SUMMARY | 2024-06-30 10:02 | XMS_ITS ---
Author Organization James Jj DO, FACP Address [address] [place], [place] [phone] Care Team Providers Care Auto Customize Painter Name Role Phone James Jj Primary Care Provider REASON FOR VISIT Message Encounters Encounter Location Date Provider Diagnosis James Jj DO, FACP [address] [place] [id number] 10/28/2023 James Jj PLAN OF TREATMENT No Information
--- OUTSIDE RECORDS SUMMARY | 2024-06-30 10:02 | XMS_ITS ---
Author Organization James Jj DO, FACP Address [address] [place], [place] [phone] Care Team Providers Care Processing Analyst Name Role Phone James Jj Primary Care Provider REASON FOR VISIT Message MEDICATIONS Medication SIG (Take, Route, Frequency, Duration) Notes Start Date End Date Status predniSONE 20 MG 1 tablet Orally Twic e a day for 6 days 10/22/2023 Active Albuterol Sulfate HFA 108 (90 Base) MCG/ACT 1 puff as needed Inhalation every 4 hrs for 30 days 10/22/2023 Active Encounters Encounter Location Date Provider Diagnosis James Jj DO, FACP [address] [place] [phone] 10/22/2023 James Jj PLAN OF TREATMENT Medication Medication Name Sig Start Date Stop Date Notes predniSONE 20 MG 1 tablet Orally Twic e a day for 6 days 10/22/2023 Albuterol Sulfate HFA 108 (9 0 Base) MCG/ACT 1 puff as needed Inhalation every 4 hrs for 30 days 10/22/2023
--- OUTSIDE RECORDS SUMMARY | 2024-06-30 10:03 | XMS_ITS | Encounter Summary ---
Author Organization [facility] Address [address] [place] [address] Phone Care Team Providers Care Pastrycook'S Assistant Name Role Phone Lori Meneses NP Primary Care Provider [phone] Encounter Details Date Type Department Care Team (Late st Contact Info) Description 02/04/2013 Conversion Encounter [facility] [address] [place] [address] [place] [address] Social History Tobacco Use Types Packs/Day Years [...] on filedocumented in this encounter Care Teams Pastrycook'S Assistant Relationship Specialty Start Date End Date Lori Meneses NP [address] [place] [address] [place] [address] PCP - General Pediatrics 09/04/20 documented as of this encounter
--- OUTSIDE RECORDS SUMMARY | 2024-06-30 10:03 | XMS_ITS | Clinical Summary ---
Author Organization [facility] Address [address] [place] [address] Phone Care Team Providers Care Poultry Processor Name Role Phone Lori Meneses ASHLYN Primary Care Provider [phone] Allergies Active Allergy Reactions Criticality Noted Date [...] Onset: 06/08/2014 Added by: Tiffanie Cote Immunizations Immunization Administration Dates Next Due DTP 06/22/1998 DTaP [...] Health Maintenance Due Date Last Done Comments Influenza Vaccines (#1) 2023 04/09/20 14, 04/16/2013, 03/26/2012, Additional history exists COVID-19 Vaccine ( season) 2024 DTaP,Tdap,and Td Vaccines (8 - [...] complete this topic Procedures * Due to [facility] law, this organization might not be sharing sensitive test results. Procedure Name Priority Date/Time Associated Diagnosis Comments CHLAMYDIA GC AMP PROBE Routine 08/07/2020 6:11 PM EDT Well adult exam from Last 3 Months or Most Recently Relevant to Health Maintenance Results * Due to [place] [employer] law, this organization might not be sharing sensitive test results. * CHLAMYDIA GC AMP PROBE (08/07/2020 6:11 PM EDT) Chlamydia Trachomatis, Amplified NEGATIVE (NEG) [facility] Comment: No Chlamydia Trachomatis RNA detected in this patient's sample ? (REFERENCE RANGE/NORMAL VALUE: NOT DETECTED) ? Note: This test uses tug captain- mediated amplification method to detect rRNA from C. Trachomatis N.GONORRHOEAE AMP PROBE NEGATIVE (NEG) [facility] Comment: No Neisseria Gonorrhoeae RNA detected in this patient's sample ? (REFERENCE RANGE/NORMAL VALUE: NOT DETECTED) ? NOTE: This test uses tug captain-mediated amplification method to detect rRNA from N.Gonorrhoeae. [...] indicated. CHLAM/GC AMP PROBE SPEC TYPE CERVIX [facility] Comment: Testing performed or reported by [facility], a Service of [facility], [address], [place] [address] Pascual Allan MD, [place] Helper Swab (Cervix) 08/07/2020 6:1 1 PM EDT 08/08/2020 1:20 AM EDT Tiffanie Cote DO LAB MICROBIOLOGY - GENERAL ORDE JULIANNE Final Result [facility] from Last 3 Months or Most Recently Relevant to Health Maintenance Insurance [facility] Care Teams Poultry Processor Relationship Specialty Start Date End Date Lori Meneses NP [facility] [facility] [place] [address] PCP - General Pediatrics 09/04/20
== END 2024-06-30 09:41 | disposition home or self-care (01) ==
LOC: HO.HMCSH 09:05
PROVIDERS: PCP Internal Medicine; Visit Provider Physician Assistant Medical
DX: Z00.00 Encounter for general adult medical examination without abnormal findings (principal); E66.01 Morbid (severe) obesity due to excess calories; Z68.41 Body mass index [BMI] 40.0-44.9, adult; M08.00 Unspecified juvenile rheumatoid arthritis of unspecified site; K21.9 Gastro-esophageal reflux disease without esophagitis; Z91.09 Other allergy status, other than to drugs and biological substances; L70.9 Acne, unspecified; S73.191A Other sprain of right hip, initial encounter

== ENCOUNTER 2024-06-30 09:05 | Outpatient (REF) | payer OTHER, SELFPAY ==
[2024-06-30 13:53] LABS: MANUAL DIFF FLAG NO
[2024-06-30 13:59] LABS: Basophils Absolute Auto 0.1 X10*3/uL (0.0-0.2); Basophils Percent Auto 0.7 % (0-2); Eosinophils Absolute Auto 0.2 X10*3/uL (0.0-0.4); Hematocrit 36.6 % (37.0-47.0); Hemoglobin 12.2 g/dl (12.0-16.0); Imm Gran Abs Auto 0.06 X10*3/uL (0.00-0.03); Imm Gran Pct Auto 0.6 % (0.0-0.4); Lymphocytes Absolute Auto 3.2 X10*3/uL (1.2-4.9); Lymphocytes Percent Auto 32.9 % (20-40); Mean Corpuscular HGB Conc 33.3 g/dl (31.0-35.0); Mean Corpuscular Hemoglobin 30.7 pg (27.0-33.0); Mean Platelet Volume 11.1 fL (9.4-12.3); Monocytes Absolute Auto 0.6 X10*3/uL (0.1-1.2); Monocytes Percent Auto 6.1 % (2-11); Neutrophils Absolute Auto 5.7 x10*3/uL (2.0-8.3); Neutrophils Percent Auto 57.7 % (45-73); Platelet Count 324 X10*3/uL (160-400); Red Blood Count 3.98 X10*6/uL (4.20-5.50); Red Cell Distribution Width 13.8 % (11.0-16.0); White Blood Count 9.8 X10*3/uL (4.8-10.8)
[2024-06-30 14:14] LABS: Estimated Average Glucose 103 mg/dL; Hemoglobin A1C 108.9642 umol/L; Hemoglobin A1c % 5.2 % (<6.0); Total Hemoglobin (HGBA1C) 3223.0426 umol/L
[2024-06-30 14:26] LABS: Alanine Aminotransferase 38 U/L (0-31); Albumin Level 4.1 g/dL (3.5-5.0); Alkaline Phosphatase 64 U/L (39-117); Anion Gap 11 (12-20); Aspartate Amino Transferase 35 U/L (5-31); Bilirubin Direct 0.1 mg/dL (0.0-0.5); Bilirubin Total 0.4 mg/dL (0.0-1.0); Blood Urea Nitrogen 5 mg/dL (9-16); C Reactive Protein 0.65 mg/dL (< or = 0.50); Calcium 8.9 mg/dL (8.4-10.2); Carbon Dioxide 23 mmol/L (22-29); Chloride 107 mmol/L (96-108); Cholesterol 215 mg/dL (<200); Estimated Glomerular Filt Rate > 60; Glucose Fasting 93 mg/dL (60-99); HDL Cholesterol 78 mg/dL (>40); LDL Cholesterol Calculated 104 mg/dL (<100); Potassium 3.6 mmol/L (3.3-5.1); Sodium 137 mmol/L (135-145); Total Protein 7.3 g/dL (6.5-8.0); Triglycerides 166 mg/dL (<150)
[2024-06-30 14:44] LABS: TSH reflex Free T4 10.65 uIU/mL (0.32-4.0); Vitamin D 25-OH Total 27.9 ng/mL (>30)
[2024-06-30 14:59] LABS: Folate 4.3 ng/mL (> or = 4.0); Vitamin B12 296 pg/mL (200-900)
[2024-06-30 15:27] LABS: Free T4 (Free Thyroxine) 1.11 ng/dL (0.71-1.85)
== END 2024-06-30 09:06 | disposition home or self-care (01) ==
LOC: HO.HMGCLDS 09:05
PROVIDERS: PCP Internal Medicine; Visit Provider Physician Assistant Medical
DX: Z00.00 Encounter for general adult medical examination without abnormal findings (principal); Z13.6 Encounter for screening for cardiovascular disorders; Z13.1 Encounter for screening for diabetes mellitus; E66.01 Morbid (severe) obesity due to excess calories; Z68.41 Body mass index [BMI] 40.0-44.9, adult; L70.9 Acne, unspecified; K21.9 Gastro-esophageal reflux disease without esophagitis; M08.00 Unspecified juvenile rheumatoid arthritis of unspecified site; E02 Subclinical iodine-deficiency hypothyroidism
CPT/HCPCS: 36415; 80053; 80061; 80076; 82248; 82306; 82607; 82746; 83036; 83735; 84439; 84443; 85025; 86140

== ENCOUNTER 2024-08-09 12:18 | Outpatient (AMB) | payer OTHER, SELFPAY ==
--- NOTE | 2024-08-09 12:22 | A.OFFVIS_ITS ---
Vital Signs 08/09/24 12:27 Height 4 ft 11 in Weight 205 lb BMI 41.4 Intake Visit Reasons: OV-MRI review RT hip Intake Note: Jemma is a 28 year old female who presents today for review of her right hip MRI results. Patient reports her dog had an emergency last week causing her to carry her 80 lb dog while running. Her right hip pain has worsened since. She continues to take Diclofenac PO with some relief. Allergies latex Allergy (Mild, Verified 08/09/24 12:26) Itching Penicillins Allergy (Mild, Verified 08/09/24 12:26) unsure bee venom protein (honey bee) Allergy (Verified 08/09/24 12:26) Anaphylaxis SEASONAL ALLERGIES Allergy (Mild, Uncoded 08/09/24 12:26) RUNNY NOSE, SNEEZING,ITCHY EYES HPI HPI OV-MRI review RT hip: Details: Justina comes in today continuing to describe right hip pain. She was injured at work almost 6 months ago and has improved but still with groin pain that limits her daily activities. He has returned to sedentary work only. She had an MRI and comes in today for review. HPI Comments Details: Jemma is a 28 year old female who presents today for review of her right hip MRI results. Patient reports her dog had an emergency last week causing her to carry her 80 lb dog while running. Her right hip pain has worsened since. She continues to take Diclofenac PO with some relief. IMPRESSION: Right: Suggestion of anterior superior labral tear from 1 to 2 o'clock positions especially on the sagittal view. [facility] Medical History (Updated 06/30/24 @ 17:17 by Paula Smimons PA-C) Subclinical hypothyroidism Annual physical exam Morbid obesity with BMI of 40.0-44.9, adult History of COVID-19 Environmental allergies GERD (gastroesophageal reflux disease) Juvenile rheumatoid arthritis Acne Arthritic gait Asthma Seasonal allergies TBI (traumatic brain injury) Surgical History History of ventral hernia repair Social History Current occupational status: employed Current occupation: [employer] Physical Exam Vital Signs: BMI result Body Mass Index 41.4 Extrem Other: Antalgic gait Passive internal rotation is positive impingement test that is less painful than prior. Negative straight leg raise. Positive [place]. Results Reviewed Results Reviewed: I personally reviewed the MR images. Right: Suggestion of anterior superior labral tear from 1 to 2 o'clock positions especially on the sagittal view. Assessment & Plan Assessment & Plan (1) Labral tear of right hip joint: Code(s): S73.191A - Other sprain of right hip, initial encounter Category: Medical Plan: This is a 28-year-old with a work-related injury to her right hip. She continues to have pain and intermittent limping. She has returned to work for sedentary work only. An MRI with contrast was obtained in is consistent with a superior labral tear. I had a long discussion with her regarding treatment options. She has improved significantly but still not pain-free and limited. She is able to walk without assistive devices and is much more comfortable for most of the day. I do think it would be reasonable for her to consult with a hip arthroscopist and discussed surgical options. She should continue current work restrictions (sedentary work only). I will refer her to a hip arthroscopist. Coding Level of Care Code Est Pt Level 3 (11092) Diagnoses Labral tear of right hip joint S73.191A
[2024-08-09 12:27] VITALS: BMI 41.4
== END 2024-08-09 12:39 | disposition home or self-care (01) ==
LOC: HO.HOS 12:19
PROVIDERS: PCP Internal Medicine; Visit Provider Orthopaedic Surgery
DX: S73.191A Other sprain of right hip, initial encounter (principal)
CPT/HCPCS: 99213

== ENCOUNTER → 2024-08-09 12:18 | Outpatient (BNVA) | payer OTHER, SELFPAY | PROVIDERS: PCP Internal Medicine; Visit Provider Orthopaedic Surgery | DX: S73.191A Other sprain of right hip, initial encounter (principal); X50.0XXA Overexertion from strenuous movement or load, initial encounter; Y93.02 Activity, running; Y92.9 Unspecified place or not applicable; Y99.9 Unspecified external cause status; Z71.2 Person consulting for explanation of examination or test findings | CPT/HCPCS: 99212 ==

== ENCOUNTER 2024-10-22 14:42 | Outpatient (REF) | payer OTHER, SELFPAY ==
[2024-10-22 16:36] LABS: Hematocrit 38.5 % (37.0-47.0); Hemoglobin 12.8 g/dl (12.0-16.0); Mean Corpuscular HGB Conc 33.2 g/dl (31.0-35.0); Mean Corpuscular Hemoglobin 30.5 pg (27.0-33.0); Mean Corpuscular Volume 91.9 fL (80.0-98.0); Mean Platelet Volume 11.4 fL (9.4-12.3); Platelet Count 385 X10*3/uL (160-400); Red Blood Count 4.19 X10*6/uL (4.20-5.50); Red Cell Distribution Width 13.2 % (11.0-16.0); White Blood Count 10.3 X10*3/uL (4.8-10.8)
[2024-10-22 16:38] LABS: Appearance Urine Clear; Color Urine Yellow; Glucose Urine UA Negative (Negative); Leukocyte Esterase Urine Negative (Negative); Nitrite Urine Negative (Negative); Specific Gravity - Urine <= 1.005 (1.005-1.025); Urine Blood Negative (Negative); Urine Ketones Negative (Negative); Urine Protein Negative (Neg-Trace)
[2024-10-22 18:15] LABS: Alanine Aminotransferase 56 U/L (0-31); Albumin Level 4.5 g/dL (3.5-5.0); Anion Gap 16 (12-20); Aspartate Amino Transferase 40 U/L (5-31); Bilirubin Total 0.5 mg/dL (0.0-1.0); Blood Urea Nitrogen 5 mg/dL (9-16); Calcium 9.7 mg/dL (8.4-10.2); Carbon Dioxide 25 mmol/L (22-29); Chloride 104 mmol/L (96-108); Estimated Glomerular Filt Rate > 60; Glucose Random 82 mg/dL (60-115); Iron 87 mcg/dL (30-160); Percent Iron Saturation 22 % (15-50); Potassium 3.8 mmol/L (3.3-5.1); Sodium 141 mmol/L (135-145); Total Iron Binding Capacity 387 mcg/dL (228-428); Total Protein 7.2 g/dL (6.5-8.0); Unsaturated Iron Binding 300 ug/dL
[2024-10-22 18:21] LABS: Ferritin 23 ng/mL (10-122); TSH reflex Free T4 1.73 uIU/mL (0.32-4.0)
[2024-10-22 18:23] LABS: CT PCR NOT DETECTED (Not Detect.); NG PCR NOT DETECTED (Not Detect.)
[2024-10-22 19:03] LABS: Alkaline Phosphatase 71 U/L (39-117)
[2024-10-23 04:28] LABS: HIV AB/AG Nonreactive (Nonreactive); HIV Num 1 0.06 S/CO (0.00-0.99)
[2024-10-25 10:08] LABS: RPR Rapid Plasma Reagin NON-REACTIVE (NON-REACTIVE)
[2024-10-26 10:18] LABS: Hepatitis BE Antibody NON-REACTIVE (NON-REACTIVE); Hepatitis BE Antigen NON-REACTIVE (NON-REACTIVE)
== END 2024-10-22 14:43 | disposition home or self-care (01) ==
LOC: HO.HMGCLDS 14:42
PROVIDERS: PCP Internal Medicine; Visit Provider Physician Assistant Medical
DX: Z20.2 Contact with and (suspected) exposure to infections with a predominantly sexual mode of transmission (principal); E03.8 Other specified hypothyroidism; Z79.899 Other long term (current) drug therapy; Z00.00 Encounter for general adult medical examination without abnormal findings; D64.9 Anemia, unspecified
CPT/HCPCS: 80053; 81003; 82728; 83540; 84443; 85027; 86592; 86707; 87350; 87389; 87491; 87591; 96127

== ENCOUNTER 2024-10-22 14:42 | Outpatient (AMB) | payer OTHER, SELFPAY ==
--- NOTE | 2024-10-22 14:33 | MHC.PC.OV ---
Vital Signs 10/22/24 14:34 Height 4 ft 11 in Weight 206 lb BMI 41.6 BP 142/67 H Respiration 14 Pulse 84 Pulse Source Pulse Oximeter Temp 97.7 F Temp Source Temporal Artery Scan Pulse Oximetry (%) 98 Oxygen Delivery Method Room Air Intake Visit Reasons: ? exposure to STD Appointment Scheduler Required: No Accompanied by: Self / Same As Patient Allergies amoxicillin Allergy (Mild, Verified 10/22/24 15:17) Rash latex Allergy (Mild, Verified 10/22/24 15:17) Itching Penicillins Allergy (Mild, Verified 10/22/24 15:17) unsure bee venom protein (honey bee) Allergy (Verified 10/22/24 15:17) Anaphylaxis SEASONAL ALLERGIES Allergy (Mild, Uncoded 10/22/24 15:17) RUNNY NOSE, SNEEZING,ITCHY EYES Medication List - Last Reconciled 10/22/24 by Paula Simmons PA-C albuterol sulfate 90 mcg/actuation inhalation cetirizine 10 mg PO DAILY PRN 90 days cholecalciferol (vitamin D3) 1,250 mcg PO QWEEK diclofenac sodium 75 mg PO BID epinephrine IM levothyroxine 75 mcg PO DAILY 6 weeks montelukast 10 mg PO DAILY 90 days omeprazole magnesium (Prilosec OTC) 20 mg PO DAILY spironolactone 25 mg PO DAILY 90 days Tobacco use date assessed: 10/22/24 Dental Screening Dental Screen Date: 10/22/24 Did you have a dental visit in the last 12 months?: No Did you have a dental problem in the last 6 months where you did not have access to dental care?: No HPI ? exposure to STD HPI Details The patient is a 28-year-old female presenting with concerns for potential exposure to sexually transmitted diseases (STDs) following partner infidelity. Over the course of a five-month relationship, stressors including her dog's hospitalization placed strain on her emotional and physical commitment, leading to the discovery of her partner's infidelity. During this period, the patient lacked support from her partner, who brought another woman into their home. The situation prompted concerns regarding the risk of STDs. The patient denies any lesions or abnormal discharge but seeks testing to ensure her health. There is no history of hepatitis B vaccination, which was identified during the visit. The patient also experienced a lapse in her levothyroxine medication for hypothyroidism due to personal life disruptions. Social History - Currently experiencing housing and transportation disruptions due to the ending of a relationship with a former partner. - Does not engage in alcohol or tobacco consumption, distinguishing her lifestyle from that of her former partner. - lives in a rented apartment in her mom's house. Previously shared home with partner; now responsible for own housing after ending the relationship. - Disclosed emotional distress in relation to pet health and relationship difficulties. [facility] Medical History Exposure to STD Subclinical hypothyroidism Annual physical exam Morbid obesity with BMI of 40.0-44.9, adult History of COVID-19 Environmental allergies GERD (gastroesophageal reflux disease) Juvenile rheumatoid arthritis Acne Arthritic gait Asthma Seasonal allergies TBI (traumatic brain injury) Surgical History History of ventral hernia repair Family History Mother Active asthma Family history of thyroid problem Social History Housing: House Alcohol intake: current Alcohol intake frequency: holidays/special occasions only Patient Tobacco Use Status: Never used Tobacco service: No Current occupational status: employed Cognitive needs: No Hearing needs: No Vision needs: No Questionnaire PHQ-9 Over the last 2 weeks, how often have you been bothered by any of the following problems? 1. Little interest or pleasure in doing things: not at all 2. Feeling down, depressed, or hopeless: not at all 3. Trouble falling or staying asleep, or sleeping too much: not at all 4. Feeling tired or having little energy: not at all 5. Poor appetite or overeating: not at all 6. Feeling bad about yourself - or that you are a failure or have let yourself or your family down: not at all 7. Trouble concentrating on things, such as reading the newspaper or watching television: not at all 8. Moving or speaking so slowly that other people could have noticed. Or the opposite - being so fidgety or restless that you have been moving around a lot more than usual: not at all 9. Thoughts that you would be better off or of hurting yourself in some way: not at all Total score: 0 Depression Screening Interpretation: Negative Depression Screening Done: Yes 63602 - PHQ-9 Billing: Yes Source: Developed by Drs. James Taylor, Rosemarie Renner, Nahum Gautam and colleagues, with an educational bill from [employer] Thrive Questionnaire Date Thrive assessed: 10/22/24 I am a: Patient What is your living situation today?: I have a steady place to live Within the past 12 months, did the food you bought not last and you didn't have the money to get more?: Never true Within the past 12 months, did you worry whether your food would run out before you got money to buy more?: Never true Do you have trouble paying for medicines?: No Do you have trouble getting transportation to medical appointments?: No Do you have trouble paying your heating and electricity bill?: No Do you have trouble taking care of your child, family member or friend?: No Do you have trouble with day-to-day activities such as bathing, preparing meals, shopping, managing finances, etc.?: No Are you currently unemployed and looking for a job?: No Are you interested in more education?: No Please select the resources that you would like help with: None THRIVE Score: 0 AUDIT C Alcohol Use Questionnaire (AUDIT-C) 1. How often do you have a drink containing alcohol?: Monthly or less 2. How many drinks containing alcohol do you have on a typical day when you are drinking?: 1 or 2 3. How often do you have six or more drinks on one occasion?: Never Total Score: 1 Score Reviewed/Action Taken: No ZOLTAN-7 AMB Questionnaire ZOLTAN-7 Date ZOLTAN - 7 assessed: 10/22/24 Feeling nervous, anxious, or on edge: 0 = Not at all Not being able to stop or control worryin = Not at all Worrying too much about different things: 0 = Not at all Trouble relaxin = Not at all Being so restless that it is hard to sit still: 0 = Not at all Becoming easily annoyed or irritable: 0 = Not at all Feeling afraid as if something awful might happen: 0 = Not at all Total ZOLTAN-7 score (0-4 normal; 5-9 mild; 10-14 moderate; 15-21 severe): 0 Source: Developed by Drs. James Taylor, Rosemarie Renner, Nahum Gautam and colleagues, with an educational bill from [employer] ZOLTAN-7 Assessment Billing ZOLTAN-7 Assessment Tool: ZOLTAN-7 Assessment 78523 Review of Systems Const Details: - Genitourinary: Denies abnormal lesions or discharge. - General: Reports significant emotional stress due to recent personal relationship challenges. Physical exam (Primary Care) Vital Signs: Last Vital Signs Temp 97.7 F 10/22/24 14:34 Pulse 84 10/22/24 14:34 Resp 14 10/22/24 14:34 BP 142/67 H 10/22/24 14:34 Pulse Ox 98 10/22/24 14:34 Oxygen Delivery Method Room Air 10/22/24 14:34 BMI result Body Mass Index 41.6 Tobacco/Smoking Status: Tobacco use Status Tobacco use date assessed 10/22/24 10/22/24 14:36 Patient Tobacco Use Status Never used Tobacco 10/22/24 14:50 PHQ-9: PHQ-9 Score PHQ-9: Total score 0 10/22/24 14:50 Depression Screening Interpretation: Negative Thrive Assessment: Date of Thrive Assessment Date Thrive assessed 10/22/24 10/22/24 14:36 Const Other: Appearance: Alert. Oriented X3. No acute distress. Head: Normal external exam. Normocephalic. Atraumatic. Eyes: Pupils are equal, round, and reactive to light. Extraocular movements intact. Conjunctiva and sclera normal. Eyelids normal. Throat: Moist mucous membranes. Neck: Normal inspection. Neck supple. Full range of motion. Cardiovascular: Normal heart rate and rhythm. Respiratory: No respiratory distress. Painless inspiration. Back: Full range of motion noted. Skin: Skin warm and dry. Normal skin color. Normal skin turgor. No rashes/lesions/lacerations noted. Extremities: Extremities exhibit normal range of motion. Neuro: Oriented X 3. No motor deficit. No sensory deficit. Reflexes normal. Results Reviewed Results Reviewed: - Labs: Comprehensive testing for gonorrhea, chlamydia, syphilis, HIV, hepatitis B. CBC and renal function assessment. Coding Level of Care Code Est Pt Level 4 (14317) Complex EM visit Add On G2211 Diagnoses Exposure to STD Z20.2 Subclinical hypothyroidism E03.8 Additional Codes PHQ-9 - 62364 - PHQ-9 Billing: Yes ([id number]) ZOLTAN-7 Assessment Billing - ZOLTAN-7 Assessment Tool: ZOLTAN-7 Assessment 50827 ([id number]) Assessment & Plan Assessment & Plan (1) Exposure to STD: Code(s): Z20.2 - Contact with and (suspected) exposure to infections with a predominantly sexual mode of transmission Category: Medical Plan: I have initiated comprehensive testing for STDs. The patient will be informed of the results upon availability. Prophylactic treatment is not indicated unless infection is confirmed. (2) Subclinical hypothyroidism: Code(s): E03.8 - Other specified hypothyroidism Category: Medical Plan: The patient's levothyroxine prescription has been refilled. Thyroid function will be reassessed following blood testing. The patient was advised to resume medication and a follow-up is scheduled in two months to evaluate the adequacy of treatment. Condition is chronic and stable will continue to monitor. Plan Plan Patient was informed and verbally consented to the use of an ambient scribe for clinic note documentation during this visit. 1. Potential Exposure To Sexually Transmitted Diseases Stds I have initiated comprehensive testing for STDs. The patient will be informed of the results upon availability. Prophylactic treatment is not indicated unless infection is confirmed. 2. Hypothyroidism The patient's levothyroxine prescription has been refilled. Thyroid function will be reassessed following blood testing. The patient was advised to resume medication and a follow-up is scheduled in two months to evaluate the adequacy of treatment. I discussed with the patient the potential risk of exposure to STDs following her partner's infidelity. We reviewed the importance of comprehensive testing for gonorrhea, chlamydia, syphilis, and HIV. I emphasized that results would guide any treatment decisions, advising against prophylactic antibiotics unless results indicated necessity. The patient was informed about hepatitis B and the importance of vaccination. In terms of her hypothyroidism, I stressed the importance of medication adherence and adjusted her therapeutic plan accordingly, arranging for a convenient pharmacy solution. A plan for follow-up and further evaluation of her thyroid function was outlined. I encouraged open communication regarding any new symptoms, reaffirming her proactive approach to managing health concerns. Orders: Orders HIV Ab/Ag Today Z20.2 - Contact with and (suspected) exposure to infections with a predominantly sexual mode of transmission CT NG by PCR Today Z20.2 - Contact with and (suspected) exposure to infections with a predominantly sexual mode of transmission Hepatitis BE Antibody Today Z20.2 - Contact with and (suspected) exposure to infections with a predominantly sexual mode of transmission Hepatitis BE Antigen Today Z20.2 - Contact with and (suspected) exposure to infections with a predominantly sexual mode of transmission Complete Blood Count no Diff Today Z20.2 - Contact with and (suspected) exposure to infections with a predominantly sexual mode of transmission Ferritin Today D64.9 - Anemia, unspecified RPR Monitor reflex titer Today Z20.2 - Contact with and (suspected) exposure to infections with a predominantly sexual mode of transmission UA CC w/rflx Micro + Cult Today Z20.2 - Contact with and (suspected) exposure to infections with a predominantly sexual mode of transmission Comprehensive Met. Panel Today Z00.00 - Encounter for general adult medical examination without abnormal findings TSH reflex Free T4 Today Z00.00 - Encounter for general adult medical examination without abnormal findings IRON PROFILE Today D64.9 - Anemia, unspecified Medications: Refilled levothyroxine 75 mcg PO DAILY 6 weeks 42 tabs 0RF sub clinical Hypothyroidism levothyroxine 75 mcg PO DAILY 6 weeks 42 tabs 0RF sub clinical Hypothyroidism Patient Instructions: - Complete all recommended lab work, including blood testing for STDs and thyroid evaluation, as soon as possible. - Resume taking prescribed levothyroxine as directed and notify if any side effects or issues occur. - Await results from your STD testing and follow up as discussed for further consultation. - Maintain awareness of any new symptoms and report them promptly, especially if lesions or unusual discharge develop. - Continue health evaluations and thyroid medication adherence for overall well-being.
[2024-10-22 14:34] VITALS: BP 142/67; PULSE 84; RESP 14; TEMP 36.5; O2SAT 98; BMI 41.6
== END 2024-10-22 15:24 | disposition home or self-care (01) ==
LOC: HO.HMCSH 14:42
PROVIDERS: PCP Internal Medicine; Visit Provider Physician Assistant Medical
DX: Z20.2 Contact with and (suspected) exposure to infections with a predominantly sexual mode of transmission (principal); E03.8 Other specified hypothyroidism